=== PATIENT | female | born 1995 | race Caucasian/White ===

== ENCOUNTER 2020-05-27 00:23 | Emergency (ER) | payer MEDICAID ==
[2020-05-27 00:41] VITALS: BP 138/61; Wt 44.5 kg
[2020-05-27] MEDS ORDERED: TRAZODONE HCL150 MG PO (00:43)
[2020-05-27] MEDS ORDERED: VRAYLAR3 MG PO (00:44)
[2020-05-27] MEDS ORDERED: KLONOPIN1 MG PO (00:44)
[2020-05-27 01:24] LABS: BASOPHILS 0.2 % (0-2); EOSINOPHILS 0.2 % (0-7); HEMATOCRIT 40.9 % (36.0-48.0); HEMOGLOBIN 13.5 g/dL (12-16); IMMATURE GRANULOCYTES 0.1 % (0-5); MCH 30.5 pg (26.0-34.0); MCV 92.5 fL (80.0-100.0); MEAN PLATELET VOLUME 9.7 fL (7.4-10.4); MONOCYTES 6.6 % (2-11); NEUTROPHILS 78.9 % (40-80); PLATELET COUNT 297 10x3/uL (130-400); RBC 4.42 10x6/uL (4.00-5.40); RDW 14.5 % (11.5-14.5); WBC 9.2 10x3/uL (4.8-10.8)
[2020-05-27 01:25] LABS: CALC OSMOLALITY 279 mosm/kg (275-300); CALCIUM 9.2 mg/dL (8.5-10.1); CARBON DIOXIDE 25.6 mmol/L (21.0-32.0); CHLORIDE - SERUM 105 mmol/L (98-107); CREATININE - SERUM 0.9 mg/dL (0.6-1.3); GLUCOSE 97 mg/dL (74-106); POTASSIUM - SERUM 3.4 mmol/L (3.5-5.1); SODIUM 141 mmol/L (136-145); UREA NITROGEN 11 mg/dL (7-18); eGFR NON AFRICAN AMERICAN 83 mL/min (90-120)
[2020-05-27 01:27] LABS: BILIRUBIN NEGATIVE (NEGATIVE); GLUCOSE NEGATIVE (NEGATIVE); KETONE NEGATIVE (NEGATIVE); NITRITE NEGATIVE (NEGATIVE); UROBILINOGEN NORMAL (NORMAL)
[2020-05-27 01:32] LABS: ALBUMIN 4.6 g/dL (3.4-5.0); ALKALINE PHOSPHATASE 63 U/L (30-120); ALT (SGPT) 41 U/L (10-68); BILIRUBIN - TOTAL 0.22 mg/dL (0.2-1.3); MAGNESIUM - SERUM 1.9 mg/dL (1.8-2.4); PROTEIN - SERUM 8.4 g/dL (6.4-8.2)
[2020-05-27 01:33] LABS: HCG URINE NEGATIVE (NEGATIVE)
[2020-05-27 01:37] LABS: UDS - AMPHET NEGATIVE QUAL (NEGATIVE); UDS - BARB NEGATIVE QUAL (NEGATIVE); UDS - BENZO NEGATIVE QUAL (NEGATIVE); UDS - COCAINE NEGATIVE QUAL (NEGATIVE); UDS - OPIATE NEGATIVE QUAL (NEGATIVE); UDS - PCP NEGATIVE QUAL (NEGATIVE); UDS - THC POSITIVE QUAL (NEGATIVE)
--- NOTE | 2020-05-27 02:06 | NUR ---
DR CESPEDES NOTIFIED AND REVIEWED PT's BEHAVIOR AND ASSESSMENT RESULTS. PT IS A LOW RISK PER DR CESPEDES. DR CESPEDES STATED TO GIVE RESOURCES TO PT AT TIME OF DISCHARGE. NO FURTHER ORDERS AT THIS TIME. RESOURCES REVIEWED WITH PT AND SHE VERBALIZED UNDERSTANDING.
== END 2020-05-27 04:46 | disposition home or self-care (01) ==
LOC: D.ER 00:23
PROVIDERS: Family Medicine
DX: F32.9 Major depressive disorder, single episode, unspecified (principal); R45.851 Suicidal ideations; Y04.8XXA Assault by other bodily force, initial encounter; Y93.9 Activity, unspecified; Y92.9 Unspecified place or not applicable